=== PATIENT | female | born 1955 | race Caucasian/White ===

== ENCOUNTER 2024-09-19 05:16 | Emergency (ER) | payer MEDICARE ==
[~2024-09-19] VITALS: Ht 162.6 cm; Wt 110.0 kg
[2024-09-19 06:55] VITALS: BP 140/63
[2024-09-19 07:02] VITALS: BP 136/62
== END 2024-09-19 07:07 | disposition home or self-care (01) ==
LOC: ED 05:16
DX: S01.01XA Laceration without foreign body of scalp, initial encounter (principal); E11.9 Type 2 diabetes mellitus without complications; W06.XXXA Fall from bed, initial encounter; Y92.003 Bedroom of unspecified non-institutional (private) residence as the place of occurrence of the external cause